=== PATIENT | female | born 1975 | race Hispanic/Latino ===

== ENCOUNTER 2023-10-12 13:55 | Inpatient (IN) | payer OTHER ==
[~2023-10-12] VITALS: Ht 157.5 cm; Wt 70.3 kg
[2023-10-12 14:55] LABS: BASOPHILS # (AUTO) 0.03 K/uL (0.00-0.20); BASOPHILS % (AUTO) 0.3 % (0.0-5.0); EOSINOPHILS # (AUTO) 0.09 K/uL (0.00-0.70); EOSINOPHILS % (AUTO) 0.9 % (0.0-8.0); HEMATOCRIT 39.8 % (36-48); IMMATURE GRANULOCYTE ABSOLUTE 0.04 K/uL (0-1); LYMPHOCYTES # (AUTO) 2.1 K/uL (1.0-4.8); LYMPHOCYTES % (AUTO) 21.2 % (21.0-51.0); MEAN CORPUSCULAR HEMOGLOBIN 28.9 pg (27.0-33.0); MEAN CORPUSCULAR HGB CONC 34.2 g/dL (32.0-36.0); MEAN CORPUSCULAR VOLUME 84.7 fL (79-99); MONOCYTES # (AUTO) 0.6 K/uL (0.1-1.0); MONOCYTES % (AUTO) 6.6 % (3.0-13.0); NEUTROPHILS # (AUTO) 6.8 K/uL (1.8-7.7); NEUTROPHILS % (AUTO) 70.6 % (40.0-77.0); PLATELET COUNT (AUTO) 378 K/uL (130-400); RED CELL DISTRIBUTION WIDTH 13.4 % (11.0-15.5); WHITE BLOOD COUNT (AUTO) 9.7 K/uL (4.8-10.8)
[2023-10-12] MEDS ORDERED: 0.9%NACL 1000ML 1,000 ML IV ONE (15:00)
[2023-10-12] MEDS ORDERED: MECLIZINE HCL 25 MG TABLET PO ONE (15:00)
[2023-10-12 15:17] LABS: CREATININE 0.7 mg/dL (0.5-1.5); POTASSIUM 3.6 mmol/L (3.5-5.1)
[2023-10-12 15:21] LABS: ALBUMIN 3.2 g/dL (3.5-5.0); BILIRUBIN,TOTAL 0.3 mg/dL (0.2-1.0); TOTAL PROTEIN, SERUM 7.1 g/dL (6.0-8.3)
[2023-10-12] MEDS ORDERED: MORPHINE 4 MG SYG IV PRN (22:00)
[2023-10-12] MEDS ORDERED: ONDANSETRON 4MG INJ IV PRN (22:00)
[2023-10-12] MEDS ORDERED: ACETAMINOPHEN 650 MG SUPPOSITORY RC PRN (22:00)
[2023-10-12] MEDS ORDERED: MORPHINE 2 MG SYG IV PRN (22:00)
[2023-10-12] MEDS: LACTATED RINGERS 1000ML 1,000 ML IV SCH (22:10)
[2023-10-12] MEDS ORDERED: POTASSIUM CHLORIDE 20MEQ/100ML 100 ML IV PRN (22:30)
[2023-10-12] MEDS ORDERED: MAGNESIUM 2GM PREMIX 50ML 50 ML IV PRN (22:30)
[2023-10-12 22:45] VITALS: BP 128/88; PULSE 57; RESP 18
[2023-10-12 23:35] LABS: ADD UA MICROSCOPIC YES; APPEARANCE,URINE CLEAR (CLEAR); BILIRUBIN,URINE NEGATIVE (NEGATIVE); COLOR,URINE LIGHT-YELLOW (YELLOW); GLUCOSE, URINE (UA) NEGATIVE (NEGATIVE); KETONES,URINE NEGATIVE (NEGATIVE); LEUKOCYTE ESTERASE ,URINE NEGATIVE Leu/uL (NEGATIVE); NITRATE,URINE 2+ (NEGATIVE); OCCULT BLOOD,URINE NEGATIVE (NEGATIVE); PROTEIN,URINE NEGATIVE (NEGATIVE); UROBILINOGEN,URINE 0.2 mg/dL (0.2-1.0)
[2023-10-12 23:37] LABS: MUCUS,URINE RARE LPF (None Seen); RBC,URINE 0-1 /HPF (0-1); SQUAMOUS EPITHELIAL CELL,UR FEW /HPF (0-2)
[2023-10-13 04:00] VITALS: BP 102/66; PULSE 67; RESP 18
[2023-10-13 06:04] LABS: BASOPHILS # (AUTO) 0.02 K/uL (0.00-0.20); BASOPHILS % (AUTO) 0.2 % (0.0-5.0); EOSINOPHILS # (AUTO) 0.15 K/uL (0.00-0.70); EOSINOPHILS % (AUTO) 1.8 % (0.0-8.0); HEMATOCRIT 36.7 % (36-48); IMMATURE GRANULOCYTE ABSOLUTE 0.03 K/uL (0-1); LYMPHOCYTES % (AUTO) 23.6 % (21.0-51.0); MEAN CORPUSCULAR HEMOGLOBIN 28.4 pg (27.0-33.0); MEAN CORPUSCULAR HGB CONC 34.1 g/dL (32.0-36.0); MEAN CORPUSCULAR VOLUME 83.4 fL (79-99); MONOCYTES # (AUTO) 0.6 K/uL (0.1-1.0); MONOCYTES % (AUTO) 7.3 % (3.0-13.0); NEUTROPHILS # (AUTO) 5.7 K/uL (1.8-7.7); NEUTROPHILS % (AUTO) 66.7 % (40.0-77.0); PLATELET COUNT (AUTO) 354 K/uL (130-400); RED CELL DISTRIBUTION WIDTH 13.5 % (11.0-15.5); WHITE BLOOD COUNT (AUTO) 8.6 K/uL (4.8-10.8)
[2023-10-13 06:14] LABS: CREATININE 0.6 mg/dL (0.5-1.5); PHOSPHORUS 3.4 mg/dL (2.5-4.9); POTASSIUM 3.5 mmol/L (3.5-5.1)
[2023-10-13 06:15] LABS: INR < 0.93 (0.85-1.15); PROTHROMBIN TIME 10.5 SEC (9.6-11.6)
[2023-10-13 06:16] LABS: PARTIAL THROMBOPLASTIN TIME 26.7 SEC (26.3-35.5)
[2023-10-13 07:44] VITALS: BP 115/75; PULSE 67; RESP 17
[2023-10-13] MEDS: FAMOTIDINE 20MG VIAL IV SCH ×2 (08:07→21:59)
[2023-10-13 11:23] VITALS: BP 119/82; PULSE 62; RESP 17
[2023-10-13] MEDS: LACTATED RINGERS 1000ML 1,000 ML IV SCH (12:33)
[2023-10-13 16:00] VITALS: BP 118/73; PULSE 69; RESP 17
[2023-10-13 19:35] VITALS: BP 118/83; PULSE 82; RESP 18
[2023-10-13 20:00] VITALS: O2SAT 98
[2023-10-14] MEDS: LACTATED RINGERS 1000ML 1,000 ML IV SCH (00:22)
[2023-10-14 00:23] VITALS: BP 129/88; PULSE 81; RESP 18
[2023-10-14 04:00] VITALS: BP 118/76; PULSE 84; RESP 18
[2023-10-14 08:00] VITALS: BP 120/77; PULSE 73; RESP 17; O2SAT 100
[2023-10-14] MEDS: FAMOTIDINE 20MG VIAL IV SCH (08:43)
[2023-10-14] MEDS ORDERED: ENOXAPARIN SODIUM 40 MG/0.4 ML SYRINGE SQ SCH (09:00)
[2023-10-14 11:19] VITALS: BP 111/77; PULSE 80; RESP 17
== END 2023-10-14 15:40 | disposition home or self-care (01) | DRG 395 ==
LOC: EDBD 13:55 → EDH 13:55 → EDHIP 13:56 → UNDOADMIN 21:51 → EDHIP 21:51 → 3AH 23:05
PROVIDERS: ADMIT Internal Medicine; ATTEND Internal Medicine
DX: K42.9 Umbilical hernia without obstruction or gangrene (principal); K43.9 Ventral hernia without obstruction or gangrene; Z59.7 Insufficient social insurance and welfare support; Z75.3 Unavailability and inaccessibility of health-care facilities
CPT/HCPCS: 36415; 74176; 80048; 80053; 81001; 82948; 83735; 84100; 84484; 85025; 85610; 85730; 86850; 86900; 86901; 87077; 87088; 87186; 93005; G0378; J1650; J3490; J7030; J7120